=== PATIENT | female | born 1960 | race Caucasian/White ===

== ENCOUNTER 2017-11-01 13:33 | Emergency (ER) | payer OTHER ==
[2017-11-01 13:45] VITALS: BP 117/59
[2017-11-01] MEDS ORDERED: Tetracaine 0.5% OPTH.SOL 4 ML* 1 DROP BTL LEFT EYE ONE (13:53)
[2017-11-01] MEDS ORDERED: Fluorescein Sodium TOPICAL* 1 MG TEST ONE (13:54)
[2017-11-01] MEDS ORDERED: Tetracaine 0.5% OPTH.SOL 4 ML* 1 DROP BTL ONE (13:54)
[2017-11-01] MEDS ORDERED: Fluorescein Sodium TOPICAL* 1 MG TEST OPHTHALMIC ONE (13:54)
[2017-11-01] MEDS ORDERED: BSS OPTH.SOL* BTL ONE (13:55)
--- NOTE | 2017-11-01 14:35 | ED ---
Throat Pain/Nasal Congestion - HPI Summary HPI Summary: 56 YO F, C/O LEFT EYE REDNESS/IRRITATION FOR SEVERAL DAYS. - History of Current Complaint Chief Complaint: UCEye Time Seen by Provider: 11/01/17 13:49 Hx Obtained From: Patient Onset/Duration: Lasting Days Severity: Mild Associated Signs And Symptoms: Positive: FB Sensation. Negative: Sinus Discomfort, Nasal Discharge Cough: None - Epiglottits Risk Factors Epiglottis Risk Factors: Negative - Allergies/Home Medications Allergies/Adverse Reactions: Allergies Allergy/AdvReac Type Severity Reaction Status Date / Time Aspirin Allergy Swelling Verified 11/01/17 13:37 Of Face,Lips,& Throat Banana Allergy HIVES IN Verified 11/01/17 13:37 THROAT Home Medications: Home Medications Gentamicin 0.3% OPHTH.SOLN* 1 drop LEFT EYE Q4H 11/01/17 [History Confirmed ] PMH/Surg Hx/FS Hx/Imm Hx Previously Healthy: Yes GI History: Reports: Hx Gastroesophageal Reflux Disease - HEARTBURN- PRN ZANTAC FOR Musculoskeletal History: Reports: Hx Arthritis - LOWER BACK Sensory History: Reports: Hx Contacts or Glasses - GLASSES Denies: Hx Hearing Aid Opthamlomology History: Reports: Hx Contacts or Glasses - GLASSES - Cancer History Hx Chemotherapy: No Hx Radiation Therapy: No - Surgical History Surgery Procedure, Year, and Place: 1984-APPENDECTOMY. AGE 12 SETTING OF A FRACTURED ARM. WISDOME TEETH EXTRACTED-WHILE IN HER 20'S. COLONOSCOPY AND [id number] Hx Anesthesia Reactions: No Infectious Disease History: No Infectious Disease History: Denies: Traveled Outside the [place] in Last 30 Days - Social History Alcohol Use: Occasionally Substance Use Type: Reports: None Substance Use Comment - Amount & Last Used: LAST TIME USED ABOUT 2 WEEKS AGO Smoking Status (MU): Never Smoked Tobacco Review of Systems Constitutional: Negative Positive: Drainage, Erythema, Other - NO KNOWN TRAUMA. FEELS LIKE POSSIBLE FB. HAS BEEN USING GENTAMYCIN DROPS; NOT IMPROVING. Negative: Photophobia, Blurred Vision Negative: Ear Ache, Nasal Discharge Cardiovascular: Negative Respiratory: Negative Gastrointestinal: Negative Genitourinary: Negative Musculoskeletal: Negative Skin: Negative Neurological: Negative Psychological: Normal All Other Systems Reviewed And Are Negative: Yes Physical Exam Triage Information Reviewed: Yes Vital Signs On Initial Exam: Initial Vitals Temp Pulse Resp BP Pulse Ox 100.1 F 82 18 117/59 99 11/01/17 13:38 11/01/17 13:38 11/01/17 13:38 11/01/17 13:38 11/01/17 13:38 Vital Signs Reviewed: Yes Appearance: Positive: Well-Appearing Skin: Positive: Warm, Skin Color Reflects Adequate Perfusion Head/Face: Positive: Normal Head/Face Inspection Eyes: Positive: EOMI, ALESSANDRA, Conjunctiva Inflammed - LEFT EYE WITH SCLERAL INJECTION. NO FB SEEN., Other: - FLUORESCEIN STAIN WITHOUT OBVIOUS UPTAKE/ ABRASION/FB. NO OBVIOUS STYE IN EYELIDS. ENT: Positive: Normal ENT inspection Neck: Positive: Supple Respiratory/Lung Sounds: Positive: Clear to Auscultation Cardiovascular: Positive: RRR Musculoskeletal: Positive: Normal Neurological: Positive: Normal Psychiatric: Positive: Normal AVPU Assessment: Alert Diagnostics - Vital Signs Vital Signs Temp Pulse Resp BP Pulse Ox 11/01/17 13:38 100.1 F 82 18 117/59 99 - Laboratory Lab Statement: Any lab studies that have been ordered have been reviewed, and results considered in the medical decision making process. EENT Course/Dx - Course Course Of Treatment: NO OBVIOUS CAUSE FOUND FOR LEFT CONJUNCTIVITIS. NO FB/ ABRASION/STYE SEEN. WILL CHANGE RX TO TOBRAMYCIN AND WILL F/U WITH OPHTHALMOLOGY TOMORROW IF NOT COMPLETELY IMPROVED. - Diagnoses Provider Diagnoses: Left conjunctivitis Discharge - Discharge Plan Condition: Stable Disposition: HOME Prescriptions: Tobramycin 0.3% OPHTH.ABRAM* 1 drop LEFT EYE Q4H #1 btl Patient Education Materials: Conjunctivitis (ED) Referrals: Mundo Zaragoza MD [Primary Care Provider] - Additional Instructions: FOLLOW UP WITH YOUR SPA ASSISTANT MANAGER TOMORROW IF NOT COMPLETELY IMPROVED.
== END 2017-11-01 14:22 | disposition home or self-care (01) ==
LOC: UCEAST 13:33
DX: H10.9 Unspecified conjunctivitis (principal); Z77.22 Contact with and (suspected) exposure to environmental tobacco smoke (acute) (chronic)
CPT/HCPCS: 99212; A9270-GY; G0463